=== PATIENT | female | born 1990 | race Caucasian/White ===

== ENCOUNTER 2019-11-12 05:18 | Inpatient (IN) ==
[2019-11-12] MEDS ORDERED: ONDANSETRON 4 MG/2 ML VIAL IV PRN ×3 (05:44→08:56)
[2019-11-12] MEDS ORDERED: MEPERIDINE 50 MG/1 ML VIAL IM PRN (05:44)
[2019-11-12] MEDS ORDERED: BUTORPHANOL 2 MG/ML VIAL IV PRN (05:44)
[2019-11-12] MEDS ORDERED: BUTORPHANOL 1 MG/ML VIAL IV PRN (05:44)
[2019-11-12] MEDS ORDERED: LACTATED RINGERS 1,000 ML IV SCH ×2 (06:00→09:00)
[2019-11-12] MEDS ORDERED: OXYTOCIN/LR 20 UNIT/1,000 ML BAG IV SCH (06:00)
[2019-11-12] MEDS ORDERED: ceFAZolin 2,000 MG in PREMIX 1 EACH IV ONE (06:02)
[2019-11-12] MEDS ORDERED: FAMOTIDINE 20 MG/2 ML VIAL IV ONE (06:05)
[2019-11-12] MEDS ORDERED: CITRIC ACID/SODIUM CITRATE 30 ML UDCUP PO ONE (06:05)
[2019-11-12 06:11] LABS: Basophils % 0.2 % (0.0-0.8); Eosinophils % 0.3 % (0.00-10.9); Hematocrit 33.6 VOL% (35.7-47.0); Hemoglobin 10.5 GM/DL (12.0-16.0); Immature Granulocytes % 0.4 %; Immature Granulocytes Absolute 0.05 #; Lymphocytes # 1.6 10*3/uL (1.4-4.0); Lymphocytes % 14.1 % (21.3-54.2); Mean Corpuscular HGB Conc 31.3 GM/DL (32-36); Mean Platelet Volume 10.6 FL (9.6-12.0); Monocytes % 5.2 % (1.7-12.7); Neutrophils % 79.8 % (38.7-73.9); Platelet Count 266 T/CUMM (130-400); Red Blood Count 4.05 MC/CUMM (3.8-5.5); Red Cell Distribution Width 14.1 % (9.3-17.3); White Blood Count 11.5 T/CUMM (4-12)
[2019-11-12 08:22] LABS: Cord Arterial Blood HCO3 20.5 MMOL/L
[2019-11-12 08:23] LABS: Cord Venous Blood HCO3 21.8 MMOL/L; Cord Venous Blood PCO2 38.2 MMHG; Cord Venous Blood PO2 25.6 MMHG
[2019-11-12] MEDS ORDERED: HYDROmorphone 2 MG/1 ML VIAL IV PRN (08:50)
[2019-11-12] MEDS ORDERED: hydrOXYzine HCL 25 MG/1 ML VIAL IM PRN (08:50)
[2019-11-12] MEDS ORDERED: RHO(D) IMMUNE GLOBULIN 300 MCG SYRINGE IM ONE (08:56)
[2019-11-12] MEDS ORDERED: BENZOCAINE 20%/MENTHOL 0.5% SPRAY 56 GM CAN TOP PRN (08:56)
[2019-11-12] MEDS ORDERED: LANOLIN 50% CREAM 0.3 OZ TUBE TOP PRN (08:56)
[2019-11-12] MEDS ORDERED: HYDROCORTISONE 2.5% RECTAL CREAM 30 GM TUBE TOP PRN (08:56)
[2019-11-12] MEDS ORDERED: MEASLES/MUMPS/RUBELLA VACCINE 0.5 ML VIAL SUBCUT ONE (08:56)
[2019-11-12] MEDS ORDERED: WITCH HAZEL PADS 100/JAR TOP PRN (08:56)
[2019-11-12] MEDS ORDERED: OXYTOCIN/LR 20 UNIT/1,000 ML BAG IV ONE (08:56)
[2019-11-12] MEDS ORDERED: oxyCODONE/ACETAMINOPHEN 5-325 MG TABLET PO PRN (08:56)
[2019-11-12] MEDS ORDERED: ACETAMINOPHEN 325 MG TABLET PO PRN (08:56)
[2019-11-12] MEDS ORDERED: BISACODYL 10 MG SUPP RECTAL PRN (08:56)
[2019-11-12] MEDS ORDERED: DIPH/TET/ACEL PERT BOOSTER VACCINE 0.5 ML VIAL IM ONE (08:56)
[2019-11-12] MEDS ORDERED: SODIUM CHLORIDE 0.9% 1,000 ML IV SCH (09:00)
[2019-11-12] MEDS ORDERED: PHENYLEPHRINE 1 MG/10 ML SYRINGE IV ONE (09:01)
[2019-11-12] MEDS ORDERED: MORPHINE 10 MG/10 ML VIAL ONE (09:02)
[2019-11-12] MEDS ORDERED: BUPIVACAINE SPINAL 0.75% 2 ML AMP SPINAL ONE (09:02)
[2019-11-12] MEDS ORDERED: fentaNYL 100 MCG/2 ML VIAL ONE (09:03)
[2019-11-12] MEDS: diphenhydrAMINE 50 MG/1 ML VIAL IV PRN ×2 (09:56→14:05)
[2019-11-12 10:16] LABS: Bilirubin,Urine Negative (Negative); Blood, Urine Negative (Negative); Glucose,Urine (UA) Negative (Negative); Ketones,Urine 5 mg/dL (Negative); Mucus,Urine Many /LPF (Occasional); Nitrite,Urine Negative (Negative); Protein,Urine 30 MG/DL; RBC,Urine 3 /HPF (0-4); Squamous Epithelial Cell,Urine Occasional /HPF (0-10); Urine Appearance CLEAR (Clear); Urine Color Yellow (Yellow); Urine Specific Gravity 1.023 (1.001-1.035); Urine Urobilinogen < 2.0 EU/DL (0.2-1.0); WBC,Urine 2 /HPF (0-6)
[2019-11-12] MEDS: IBUPROFEN 800 MG TABLET PO PRN (10:45)
[2019-11-12] MEDS: ceFAZolin 1,000 MG in SYRINGE 1 EACH IV SCH (17:11)
[2019-11-12] MEDS ORDERED: HydrOXYzine PAMOATE 25 MG CAPSULE PO PRN (19:30)
[2019-11-12] MEDS ORDERED: diphenhydrAMINE CAP 25 MG CAPSULE PO PRN (22:11)
[2019-11-12] MEDS: oxyCODONE/ACETAMINOPHEN 5-325 MG TABLET PO PRN (23:53)
[2019-11-13] MEDS: ceFAZolin 1,000 MG in SYRINGE 1 EACH IV SCH (00:40)
[2019-11-13] MEDS: IBUPROFEN 800 MG TABLET PO PRN ×3 (04:02→20:50)
[2019-11-13 06:16] LABS: Basophils % 0.1 % (0.0-0.8); Eosinophils % 0.4 % (0.00-10.9); Hematocrit 24.7 VOL% (35.7-47.0); Hemoglobin 7.4 GM/DL (12.0-16.0); Immature Granulocytes % 0.5 %; Immature Granulocytes Absolute 0.04 #; Lymphocytes # 1.5 10*3/uL (1.4-4.0); Lymphocytes % 18.2 % (21.3-54.2); Mean Corpuscular Volume 85.8 FL (87-102); Mean Platelet Volume 10.5 FL (9.6-12.0); Monocytes % 7.2 % (1.7-12.7); Neutrophils % 73.6 % (38.7-73.9); Platelet Count 206 T/CUMM (130-400); Red Blood Count 2.88 MC/CUMM (3.8-5.5); Red Cell Distribution Width 14.2 % (9.3-17.3); White Blood Count 8.2 T/CUMM (4-12)
[2019-11-13] MEDS: DOCUSATE SODIUM 100 MG CAPSULE PO SCH ×3 (07:49→20:50)
[2019-11-13] MEDS: oxyCODONE/ACETAMINOPHEN 5-325 MG TABLET PO PRN ×2 (13:05→20:51)
[2019-11-13] MEDS: MAGNESIUM HYDROXIDE SUSP 30 ML UDCUP PO PRN (20:49)
[2019-11-14] MEDS: oxyCODONE/ACETAMINOPHEN 5-325 MG TABLET PO PRN (03:48)
[2019-11-14] MEDS: IBUPROFEN 800 MG TABLET PO PRN (03:49)
[2019-11-14 08:28] VITALS: BP 135/75
[2019-11-14] MEDS: DOCUSATE SODIUM 100 MG CAPSULE PO SCH (08:55)
[2019-11-14] MEDS: MAGNESIUM HYDROXIDE SUSP 30 ML UDCUP PO PRN (08:55)
== END 2019-11-14 12:40 | disposition home or self-care (01) | DRG 788 ==
LOC: N.LDOUT 05:18 → N.LD 05:20 → N.OB 11:44
PROVIDERS: ADMIT Specialist; ATTEND Specialist
PROC: LDCSECT (ICD-10-PCS; 2019-11-12 07:30)